=== PATIENT | female | born 1945 | race Caucasian/White ===

== ENCOUNTER 2021-08-10 20:53 | Observation (INO) ==
[2021-08-10] MEDS ORDERED: Ibuprofen 400 MG TABLET PO ONE (21:34)
[2021-08-11 01:14] LABS: Basophils % 0.2 %; Eosinophils % 0.2 %; Hematocrit 30.9 % (35.3-44.9); Hemoglobin 10.3 g/dL (11.5-15.4); Immature Granulocytes % 0.5 % (0-4); Lymphocytes # 3.1 K/mcL (0.6-4.6); Lymphocytes % 20.1 %; Mean Corpuscular HGB Conc 33.3 g/dL (31.6-35.5); Mean Corpuscular Hemoglobin 31.2 pg (28.0-33.3); Mean Corpuscular Volume 93.6 fL (83.0-100.0); Mean Platelet Volume 9.7 fL (9.4-12.4); Monocytes # 1.3 K/mcL (0.0-1.3); Monocytes % 8.4 %; Neutrophils # 10.9 K/mcL (1.6-8.9); Platelet Count 319 K/mcL (140-400); Red Cell Distribution Width 13.1 % (11.5-14.5); Segmented Neutrophils % 70.6 %; White Blood Count 15.4 K/mcL (4.3-11.1)
[2021-08-11 01:26] LABS: BUN/Creatinine Ratio 24 (6-26); Blood Urea Nitrogen 24 mg/dL (8-23); Calcium 8.9 mg/dL (8.6-10.3); Carbon Dioxide 24 mEq/L (23-29); Chloride 101 mEq/L (98-107); Glucose 100 mg/dL (70-105); Osmolality,Calculated 282 (280-300); Potassium 3.7 mEq/L (3.5-5.1); Sodium 134 mEq/L (136-145); eGFR For African Americans > 60 (> 60); eGFR For Non-African Americans 55 (> 60)
[2021-08-11] MEDS ORDERED: *HR* HYDROcodone/Acet 5/325 mg TABLET PO PRN ×2 (02:21→23:05)
[2021-08-11] MEDS ORDERED: Ondansetron 4 MG/2 ML VIAL IVP PRN ×2 (02:21→23:05)
[2021-08-11] MEDS ORDERED: *HR* Promethazine 25 MG/ML VIAL IM PRN ×2 (02:21→23:05)
[2021-08-11] MEDS ORDERED: Naloxone 0.4 MG/ML INJ IVP PRN ×2 (02:21→23:05)
[2021-08-11] MEDS ORDERED: *HR* OxyCODONE Immed Rel 5 MG TABLET PO PRN ×2 (02:21→23:05)
[2021-08-11] MEDS ORDERED: Acetaminophen 325 MG TABLET PO PRN ×2 (02:21→23:05)
[2021-08-11] MEDS ORDERED: Melatonin 3 MG TABLET PO PRN ×2 (02:21→23:05)
[2021-08-11] MEDS ORDERED: CeFAZolin Syr 2,000MG/20 ML 2,000 MG/20 ML SYRINGE IVPB ONE (16:11)
[2021-08-11] MEDS ORDERED: Ringers Solution, Lactated 1,000 ML IVC SCH ×2 (16:15→23:05)
[2021-08-11] MEDS ORDERED: *HR* Propofol 200 MG/20 ML VIAL IVP ONE (16:36)
[2021-08-11] MEDS ORDERED: *HR* FentaNYL (PF) 100 MCG/2 ML VIAL ONE (16:36)
[2021-08-11] MEDS ORDERED: Ondansetron 4 MG/2 ML VIAL ONE (16:36)
[2021-08-11] MEDS ORDERED: Lidocaine -MPF 2% 5 ML VIAL ONE (16:37)
[2021-08-11] MEDS ORDERED: ROPIVACAINE/PF/NS 0.25% 1 EACH SYRINGE INTRAART ONE (16:49)
[2021-08-11] MEDS ORDERED: Ropivacaine/PF 0.5% 30 ML VIAL ONE (16:49)
[2021-08-11] MEDS ORDERED: Bupivacaine/EPI 1:200k 0.25% 50 ML VIAL ONE (17:38)
[2021-08-11] MEDS ORDERED: EPHEDrine 50 MG/ML VIAL ONE (17:53)
[2021-08-11] MEDS: ceFAZolin 2,000 MG in 0.9 % Sodium Chloride 100 ML IVPB SCH (23:55)
[2021-08-12 03:17] VITALS: TEMP 97.9
[2021-08-12] MEDS: ceFAZolin 2,000 MG in 0.9 % Sodium Chloride 100 ML IVPB SCH (07:39)
[2021-08-12 08:19] LABS: Hematocrit 31.1 % (35.3-44.9); Hemoglobin 10.4 g/dL (11.5-15.4); Immature Granulocytes % 0.3 % (0-4); Lymphocytes # 0.8 K/mcL (0.6-4.6); Lymphocytes % 8.8 %; Mean Corpuscular HGB Conc 33.4 g/dL (31.6-35.5); Mean Corpuscular Hemoglobin 31.6 pg (28.0-33.3); Mean Corpuscular Volume 94.5 fL (83.0-100.0); Mean Platelet Volume 9.8 fL (9.4-12.4); Monocytes # 0.3 K/mcL (0.0-1.3); Monocytes % 3.3 %; Neutrophils # 7.6 K/mcL (1.6-8.9); Platelet Count 291 K/mcL (140-400); Red Blood Count 3.29 M/mcL (3.82-4.97); Segmented Neutrophils % 87.6 %; White Blood Count 8.7 K/mcL (4.3-11.1)
[2021-08-12] MEDS ORDERED: Lisinopril-HCTZ 20-12.5mg TABLET PO SCH ×2 (09:00)
[2021-08-12 11:24] VITALS: BP 126/66; PULSE 83; O2SAT 99
== END 2021-08-12 12:40 | disposition home health service (06) ==
LOC: EMEROOARM 20:53 → 4WAOSI 20:53 → SUATTDRO 08-11 02:21
PROVIDERS: ADMIT Family Medicine; ATTEND Internal Medicine